=== PATIENT | male | born 1980 | race Caucasian/White ===

== ENCOUNTER → 2019-10-16 | Emergency (ER) | payer MEDICAID ==
[~2019-10-16] MED LIST: ALPR1TAB2 PO; IBUP800T24 PO; LEVAAER4 IN
== END | disposition left against medical advice (07) ==
LOC: ER 21:38
DX: I10 Essential (primary) hypertension (principal); Z53.21 Procedure and treatment not carried out due to patient leaving prior to being seen by health care provider

== ENCOUNTER → 2020-01-11 | Emergency (ER) | payer MEDICAID ==
[~2020-01-11] VITALS: Ht 188 cm; Wt 165.6 kg
[2020-01-11 12:50] LABS: Urine Bacteria NONE SEEN /hpf (None Seen); Urine Blood Negative /uL (Negative); Urine WBC <1 /hpf (0 - 3)
[2020-01-11 13:13] LABS: Basophils # (auto) 0.1 10 ^3/uL (0-0.2); Basophils % (auto) 0.7 % (0.0-2.0); Eosinophils # (auto) 0.2 10 ^3/uL (0-0.8); Hemoglobin 14.2 g/dL (13.5-17.5); Monocytes # (auto) 0.5 10 ^3/uL (0-1.3)
[2020-01-11 13:14] LABS: Eosinophils % (auto) 1.7 % (0.0-7.0); Hematocrit 43.1 % (41.0-53.0); Lymphocytes # (auto) 2.7 10 ^3/uL (0.4-5.4); Lymphocytes % (auto) 28.5 % (10.0-50.0); Mean Corpuscular Hemoglobin 26.7 pg (28.0-32.0); Mean Corpuscular Volume 81.1 fL (80.0-100.0); Monocytes % (auto) 5.3 % (0.0-12.0); Neutrophils # (auto) 6.2 10 ^3/uL (1.6-8.6); Neutrophils % (auto) 63.8 % (37.0-80.0); Platelet Count (auto) 251 10^3/uL (140-450); Red Blood Cells 5.32 10^6/uL (4.5-5.90); Red Cell Distribution Width 16.5 % (11.8-14.3); White Blood Cell 9.6 10^3/uL (4.4-10.8)
[2020-01-11 13:34] LABS: Albumin 3.5 g/dL (3.4-5.0); Calcium 9.1 mg/dL (8.5-10.1)
[2020-01-11 13:38] LABS: BUN/Creatinine Ratio 11.9; Bilirubin, Total 0.4 mg/dL (0.2-1.0)
[2020-01-11 13:40] LABS: Magnesium 2.2 mg/dL (1.6-2.6)
[2020-01-11 15:00] VITALS: BP 150/75
== END | disposition home or self-care (01) ==
LOC: ER 11:50
DX: N20.0 Calculus of kidney (principal); R10.32 Left lower quadrant pain; E66.01 Morbid (severe) obesity due to excess calories; Z68.42 Body mass index [BMI] 45.0-49.9, adult; Z88.1 Allergy status to other antibiotic agents; Z88.6 Allergy status to analgesic agent; Z79.899 Other long term (current) drug therapy; Z87.442 Personal history of urinary calculi; Z93.3 Colostomy status; Z90.49 Acquired absence of other specified parts of digestive tract; Z87.891 Personal history of nicotine dependence
CPT/HCPCS: 36415; 74176; 80053; 81001; 83690; 83735; 85025

== ENCOUNTER 2020-02-18 22:39 | Inpatient (IN) | payer MEDICAID ==
[~2020-02-18] VITALS: Ht 188 cm; Wt 176.9 kg
[2020-02-18 23:10] LABS: Basophils # (auto) 0.1 10 ^3/uL (0-0.2); Basophils % (auto) 0.7 % (0.0-2.0); Eosinophils # (auto) 0.1 10 ^3/uL (0-0.8); Eosinophils % (auto) 0.6 % (0.0-7.0); Hemoglobin 15.3 g/dL (13.5-17.5); Lymphocytes # (auto) 3.5 10 ^3/uL (0.4-5.4); Lymphocytes % (auto) 23.5 % (10.0-50.0); Mean Corpuscular Hgb Conc. 33.2 g/dL (32.0-36.0); Mean Corpuscular Volume 81.3 fL (80.0-100.0); Monocytes # (auto) 0.9 10 ^3/uL (0-1.3); Monocytes % (auto) 6.1 % (0.0-12.0); Neutrophils # (auto) 10.3 10 ^3/uL (1.6-8.6); Neutrophils % (auto) 69.1 % (37.0-80.0); Nucleated Red Blood Cells % 0.3 %; Platelet Count (auto) 262 10^3/uL (140-450); Red Blood Cells 5.65 10^6/uL (4.5-5.90); Red Cell Distribution Width 16.3 % (11.8-14.3); White Blood Cell 14.9 10^3/uL (4.4-10.8)
[2020-02-18 23:15] LABS: Urine Bacteria FEW /hpf (None Seen); Urine Blood TRACE /uL (Negative); Urine Mucus FEW (None Seen); Urine Specific Gravity 1.014 (1.001-1.035); Urine WBC <1 /hpf (0 - 3)
[2020-02-18 23:28] LABS: Albumin 3.7 g/dL (3.4-5.0); BUN/Creatinine Ratio 11.1; Calcium 9.7 mg/dL (8.5-10.1); Potassium 3.7 mmol/L (3.5-5.1)
[2020-02-18 23:31] LABS: Bilirubin, Total 0.6 mg/dL (0.2-1.0); Total Protein 9.2 g/dL (6.4-8.2)
[2020-02-19] MEDS ORDERED: HYDROmorphone HCL 2 MG/ML VL IV ONE (02:30)
[2020-02-19] MEDS ORDERED: ONDANSETRON HCL 4 MG/2 ML VIAL IV ONE (02:30)
[2020-02-19] MEDS ORDERED: PIPERACILLIN-TAZOB 3.375GM 100 ML IV ONE (08:15)
[2020-02-19] MEDS ORDERED: MORPHINE SULF INJ 2 MG/ML SYRINGE 1ML IV PRN (09:45)
[2020-02-19] MEDS ORDERED: cefTRIAXone 1GM/50ML D5W 50 ML IV ONE (09:45)
[2020-02-19] MEDS ORDERED: traMADol HCL 50 MG TAB PO PRN (09:45)
[2020-02-19] MEDS ORDERED: PROMETHAZINE HCL 25 MG/ML 1ML IV PRN (09:45)
[2020-02-19] MEDS ORDERED: TEMAZEPAM 15 MG CAP PO PRN (09:45)
[2020-02-19] MEDS ORDERED: ACETAMINOPHEN 500 MG TAB PO PRN (09:45)
--- NOTE | 2020-02-19 10:00 | NUR ---
MS admit from ER KODY MORILLO admitted to tele/MS after SBAR received. Patient oriented to LORIN HATCH, RN primary RN, unit, room, bed, and unit policies regarding patient care and visiting hours. Patient weighed by bedscale and encouraged to call if they need something. All questions and concerns addressed, patient verbalized understanding. Note:
[2020-02-19 10:30] VITALS: BP 148/80
[2020-02-19 11:43] LABS: Hemoglobin 14.6 g/dL (13.5-17.5)
[2020-02-19 11:45] LABS: Hematocrit 44.9 % (41.0-53.0)
[2020-02-19] MEDS: FAMOTIDINE 20 MG TAB PO SCH ×2 (13:53→21:14)
[2020-02-19 14:09] VITALS: BP 148/80
[2020-02-19] MEDS: metroNIDAZOLE 500MG/100ML 100 ML IV SCH ×2 (14:34→21:14)
[2020-02-19] MEDS: SODIUM CHLORIDE 0.9% 1,000 ML IV SCH ×2 (14:34→20:38)
[2020-02-19 16:54] VITALS: BP 136/72
--- NOTE | 2020-02-19 17:35 | NUR ---
PATIENT C/O OF ANXIETY WILL REQUEST AN ORDER OF ATIVAN FOR ANXIETY.
--- NOTE | 2020-02-19 18:10 | NUR ---
COMMUNICATION CALLED HOSPITAL LIST TO FOR AN ORDER OF ATIVAN FOR ANXIETY. DR. STEINBERG ORDERED ATIVAN 1MG Q12PRN FOR ANXIETY. Addendum: 02/19/20 at 1943 by LORIN HATCH RN RN PATIENT REFUSED MEDICATION PATIENT IS REQUESTING XANAX FOR ANXIETY AND NOT ATIVAN. WILL NOTIFY [facility] LIST OF CHANGE.
[2020-02-19 18:17] LABS: Hemoglobin 14.6 g/dL (13.5-17.5)
[2020-02-19] MEDS ORDERED: LORazepam 0.5 MG TAB PO PRN (18:30)
--- NOTE | 2020-02-19 19:15 | NUR ---
opening note pt A&Ox4. respirations even and non labored on room. pt denies pain or discomfort at this time. colostomy at left abd quadrant. IV fluids NS running at 100ml/hr. bed in low locked position, call light within reach.
--- NOTE | 2020-02-19 19:43 | NUR ---
MEDICATION CHANGE DR. SHIELDS COMMUNICATED TO CHANGE ORDER TO 1MG OF XANAX FOR ANXIETY, ONE TIME ORDER. WILL NOTIFY THE NOC RN.
[2020-02-19] MEDS ORDERED: ALPRAZolam 0.5 MG TAB PO ONE (20:00)
[2020-02-19 21:55] VITALS: BP 147/96
[2020-02-20] VITALS (7 sets, daily range): BP systolic 136–162; BP diastolic 73–89
[2020-02-20 02:02] LABS: Hematocrit 43.9 % (41.0-53.0); Hemoglobin 14.7 g/dL (13.5-17.5)
[2020-02-20] MEDS: metroNIDAZOLE 500MG/100ML 100 ML IV SCH ×2 (05:14→13:05)
[2020-02-20] MEDS: SODIUM CHLORIDE 0.9% 1,000 ML IV SCH ×2 (06:42→15:44)
--- NOTE | 2020-02-20 07:08 | NUR ---
CLOSING NOTE pt resting in left lateral position with eyes closed. no s/s of pain or discomfort. respirations are even and non labored on room air. bed in in low locked position, call light within reach.
--- NOTE | 2020-02-20 07:24 | NUR ---
Opening Shift Note Assumed care of patient, awake and alert. No S/S of distress/SOB or pain. Instructed on POC and to call for assist PRN, will continue to monitor for changes Q1hr and PRN. Noted colostomy bag to the left lower quadrant in place. Bed is set in lowest locked position with side rails up x 2 for safety and call light is within reach.
[2020-02-20 07:57] LABS: Basophils # (auto) 0 10 ^3/uL (0-0.2); Basophils % (auto) 0.4 % (0.0-2.0); Eosinophils # (auto) 0.1 10 ^3/uL (0-0.8); Eosinophils % (auto) 1.4 % (0.0-7.0); Hematocrit 42.5 % (41.0-53.0); Hemoglobin 14.2 g/dL (13.5-17.5); Lymphocytes # (auto) 2.6 10 ^3/uL (0.4-5.4); Lymphocytes % (auto) 26.6 % (10.0-50.0); Mean Corpuscular Hemoglobin 27.4 pg (28.0-32.0); Mean Corpuscular Hgb Conc. 33.5 g/dL (32.0-36.0); Mean Corpuscular Volume 81.7 fL (80.0-100.0); Monocytes # (auto) 0.7 10 ^3/uL (0-1.3); Monocytes % (auto) 7.6 % (0.0-12.0); Neutrophils # (auto) 6.3 10 ^3/uL (1.6-8.6); Nucleated Red Blood Cells % 0.1 %; Platelet Count (auto) 206 10^3/uL (140-450); Red Cell Distribution Width 16.2 % (11.8-14.3); White Blood Cell 9.8 10^3/uL (4.4-10.8)
[2020-02-20] MEDS ORDERED: cefTRIAXone 1GM/50ML D5W 50 ML IV SCH (09:00)
[2020-02-20] MEDS: FAMOTIDINE 20 MG TAB PO SCH (09:04)
--- NOTE | 2020-02-20 13:53 | NUR ---
MD rounding at bedside Dr. Mayes updated pt on POC and plans for discharge, patient verbalized understanding. MD aware of patient BP 162/89, no new orders received at this time. Will continue to monitor patient.
[2020-02-20] MEDS ORDERED: CIPR500T4 PO (16:10)
[2020-02-20] MEDS ORDERED: METR500T PO (16:10)
[2020-02-20] MEDS ORDERED: ONDA-144 PO (16:10)
--- NOTE | 2020-02-20 17:00 | NUR ---
Picked up patient medications from pharmacy Medications given to patient. Patient denies allergy to ciprofloxacin, states he is only allergic to levofloxacin. aware.
--- NOTE | 2020-02-20 17:01 | NUR ---
Stool sample MD aware of no collection of stool sample, due to no production of stool in patient's colostomy bag, patient denies having a bowel movement.
--- NOTE | 2020-02-20 17:41 | NUR ---
Discharge instructions given as ordered. Encourage to follow up with PMD as instructed, patient provided with PCP information and instructed to follow up with GI doctor within one week of discharge. All questions and concerns addressed. Patient verbalized understanding. Home medications held in Pharmacy returned to patient. IV removed with catheter intact, pressure dressing applied. Patient taken to vehicle via wheelchair with all personal belongings, accompanied by staff. No distress noted at time of departure.
== END 2020-02-20 17:40 | disposition home or self-care (01) | DRG 720 ==
LOC: ER 22:40 → OVERFLOW 22:41 → WEST WING 02-19 10:37
PROVIDERS: ADMIT Internal Medicine; ATTEND Internal Medicine
DX: A41.9 Sepsis, unspecified organism (principal); K57.31 Diverticulosis of large intestine without perforation or abscess with bleeding; E66.01 Morbid (severe) obesity due to excess calories; K52.9 Noninfective gastroenteritis and colitis, unspecified; K43.5 Parastomal hernia without obstruction or gangrene; Z93.3 Colostomy status; Z82.49 Family history of ischemic heart disease and other diseases of the circulatory system; Z88.1 Allergy status to other antibiotic agents; Z87.442 Personal history of urinary calculi; Z90.49 Acquired absence of other specified parts of digestive tract; Z68.43 Body mass index [BMI] 50.0-59.9, adult
CPT/HCPCS: 36415; 74176; 80053; 81001; 82150; 83605; 83690; 85014; 85018; 85025; 85045; 87040; 96365; 96375; G0378; J0696; J2405; J2543; J3490

== ENCOUNTER → 2020-06-25 | Emergency (ER) | payer MEDICAID ==
[~2020-06-25] VITALS: Ht 188 cm; Wt 166.5 kg
[~2020-06-25] MED LIST changes: +CIPR500T4 PO; +KETOROLAC TROMETH 30 MG/ML 1ML VIAL IV ONE; +METR500T PO; +ONDA-144 PO; +SODIUM CHLORIDE 0.9% 1,000 ML IV ONE; +TAMSULOSIN HYDROCHLORIDE 0.4 MG CAP PO ONE
[2020-06-25 13:00] VITALS: BP 153/72
[2020-06-25 13:23] LABS: Basophils # (auto) 0.1 10 ^3/uL (0-0.2); Basophils % (auto) 0.7 % (0.0-2.0); Eosinophils # (auto) 0.1 10 ^3/uL (0-0.8); Eosinophils % (auto) 1.3 % (0.0-7.0); Hematocrit 46.6 % (41.0-53.0); Hemoglobin 15.4 g/dL (13.5-17.5); Lymphocytes # (auto) 2.5 10 ^3/uL (0.4-5.4); Lymphocytes % (auto) 24.1 % (10.0-50.0); Mean Corpuscular Hemoglobin 27.4 pg (28.0-32.0); Monocytes # (auto) 0.6 10 ^3/uL (0-1.3); Monocytes % (auto) 5.7 % (0.0-12.0); Neutrophils # (auto) 6.9 10 ^3/uL (1.6-8.6); Neutrophils % (auto) 68.2 % (37.0-80.0); Nucleated Red Blood Cells % 0.2 %; Platelet Count (auto) 228 10^3/uL (140-450); Red Blood Cells 5.62 10^6/uL (4.5-5.90); Red Cell Distribution Width 15.7 % (11.8-14.3); White Blood Cell 10.2 10^3/uL (4.4-10.8)
[2020-06-25 13:41] LABS: Albumin 3.8 g/dL (3.4-5.0); Anion Gap 2 (5-15); Blood Urea Nitrogen 11 mg/dL (7-18); Calcium 9.5 mg/dL (8.5-10.1); Carbon Dioxide 30 mmol/L (21-32); Chloride 105 mmol/L (98-107); Glucose 100 mg/dL (74-106); Sodium 137 mmol/L (136-145)
[2020-06-25 13:51] LABS: Alanine Aminotransferase 31 U/L (16-61); Alkaline Phosphatase 84 U/L (45-117); Aspartate Aminotransferase 18 U/L (15-37); BUN/Creatinine Ratio 10.3; Bilirubin, Total 0.5 mg/dL (0.2-1.0); GFR African American 99 mL/min; GFR Non-African American 82 mL/min; Total Protein 9.1 g/dL (6.4-8.2)
== END | disposition home or self-care (01) ==
LOC: ER 12:35
DX: I24.9 Acute ischemic heart disease, unspecified (principal); R10.9 Unspecified abdominal pain; Z88.1 Allergy status to other antibiotic agents; Z88.8 Allergy status to other drugs, medicaments and biological substances
CPT/HCPCS: 36415; 71045; 74176; 80053; 84484; 85025; 93005; 96361; 96374; 99285; J1885; J7030

== ENCOUNTER 2021-03-09 16:56 | Emergency (ER) | payer MEDICAID ==
[~2021-03-09] VITALS: Ht 188 cm; Wt 164.2 kg
[~2021-03-09 16:56] MED LIST changes: -IBUP800T24 PO; +IBUP800T27 PO; -KETOROLAC TROMETH 30 MG/ML 1ML VIAL IV ONE; -SODIUM CHLORIDE 0.9% 1,000 ML IV ONE; -TAMSULOSIN HYDROCHLORIDE 0.4 MG CAP PO ONE
[2021-03-09 17:26] LABS: Urine WBC None Seen /hpf (0 - 3)
[2021-03-09] MEDS ORDERED: MORPHINE SULFATE 4 MG/ML SYR/VIAL IV ONE (17:30)
[2021-03-09] MEDS ORDERED: SODIUM CHLORIDE 0.9% 500 ML IVB ONE (17:30)
[2021-03-09] MEDS ORDERED: ONDANSETRON HCL 4 MG/2 ML VIAL IV ONE (17:30)
[2021-03-09 17:35] LABS: Urine Bacteria NONE SEEN /hpf (None Seen); Urine Blood Negative /uL (Negative); Urine Specific Gravity 1.018 (1.001-1.035)
[2021-03-09 18:02] LABS: Basophils # (auto) 0 10 ^3/uL (0-0.2); Basophils % (auto) 0.4 % (0.0-2.0); Eosinophils # (auto) 0.2 10 ^3/uL (0-0.8); Eosinophils % (auto) 1.7 % (0.0-7.0); Hematocrit 43.1 % (41.0-53.0); Hemoglobin 14.8 g/dL (13.5-17.5); Lymphocytes # (auto) 3.6 10 ^3/uL (0.4-5.4); Mean Corpuscular Hemoglobin 28.2 pg (28.0-32.0); Mean Corpuscular Hgb Conc. 34.2 g/dL (32.0-36.0); Mean Corpuscular Volume 82.3 fL (80.0-100.0); Monocytes # (auto) 0.8 10 ^3/uL (0-1.3); Monocytes % (auto) 6.7 % (0.0-12.0); Neutrophils # (auto) 7.1 10 ^3/uL (1.6-8.6); Neutrophils % (auto) 60.2 % (37.0-80.0); Nucleated Red Blood Cells % 0.1 %; Platelet Count (auto) 224 10^3/uL (140-450); Red Blood Cells 5.24 10^6/uL (4.5-5.90); Red Cell Distribution Width 15.8 % (11.8-14.3); White Blood Cell 11.7 10^3/uL (4.4-10.8)
[2021-03-09 18:14] VITALS: BP 141/76
[2021-03-09 18:17] LABS: Alanine Aminotransferase 39 U/L (16-61); Albumin 3.4 g/dL (3.4-5.0); Anion Gap 5 (5-15); Aspartate Aminotransferase 42 U/L (15-37); Blood Urea Nitrogen 16 mg/dL (7-18); Calcium 9.3 mg/dL (8.5-10.1); Carbon Dioxide 28 mmol/L (21-32); Chloride 104 mmol/L (98-107); GFR African American 114 mL/min; GFR Non-African American 94 mL/min; Glucose 96 mg/dL (74-106); Lipase 102 U/L (73-393); Potassium 4.4 mmol/L (3.5-5.1); Sodium 137 mmol/L (136-145)
[2021-03-09 18:24] LABS: Alkaline Phosphatase 80 U/L (45-117); Bilirubin, Total 0.4 mg/dL (0.2-1.0); Total Protein 8.8 g/dL (6.4-8.2)
== END 2021-03-09 19:05 | disposition home or self-care (01) ==
LOC: ER 16:56
DX: R10.9 Unspecified abdominal pain (principal); R07.89 Other chest pain; D72.829 Elevated white blood cell count, unspecified; I10 Essential (primary) hypertension; Z87.442 Personal history of urinary calculi; Z87.891 Personal history of nicotine dependence; Z88.1 Allergy status to other antibiotic agents
CPT/HCPCS: 36415; 74176; 80053; 81001; 83690; 84484; 85025; 93005; 96374; 96375; 99285; J2270; J2405; J7040

== ENCOUNTER 2021-09-23 01:58 | Inpatient (IN) | payer MEDICAID ==
[~2021-09-23] VITALS: Ht 188 cm; Wt 165.9 kg
[2021-09-23] MEDS ORDERED: KETOROLAC TROMETH 30 MG/ML 1ML VIAL IV ONE ×4 (02:15→09:00)
[2021-09-23] MEDS ORDERED: MORPHINE SULFATE 4 MG/ML SYR/VIAL IV ONE ×2 (02:15→04:15)
[2021-09-23] MEDS ORDERED: SODIUM CHLORIDE 0.9% 1,000 ML IV ONE (02:15)
[2021-09-23] MEDS ORDERED: ONDANSETRON HCL 4 MG/2 ML VIAL ONE (03:01)
[2021-09-23 03:29] LABS: Basophils # (auto) 0.1 10 ^3/uL (0-0.2); Basophils % (auto) 0.8 % (0.0-2.0); Eosinophils # (auto) 0.3 10 ^3/uL (0-0.8); Eosinophils % (auto) 3.2 % (0.0-7.0); Hematocrit 41.8 % (41.0-53.0); Hemoglobin 13.6 g/dL (13.5-17.5); Lymphocytes # (auto) 3.5 10 ^3/uL (0.4-5.4); Lymphocytes % (auto) 35.6 % (10.0-50.0); Mean Corpuscular Hemoglobin 27.2 pg (28.0-32.0); Mean Corpuscular Hgb Conc. 32.6 g/dL (32.0-36.0); Mean Corpuscular Volume 83.4 fL (80.0-100.0); Monocytes # (auto) 0.8 10 ^3/uL (0-1.3); Neutrophils # (auto) 5.2 10 ^3/uL (1.6-8.6); Neutrophils % (auto) 52.4 % (37.0-80.0); Nucleated Red Blood Cells % 0.2 %; Red Blood Cells 5.01 10^6/uL (4.5-5.90); Red Cell Distribution Width 18.2 % (11.8-14.3); White Blood Cell 9.9 10^3/uL (4.4-10.8)
[2021-09-23 03:48] LABS: Potassium 5.2 mmol/L (3.5-5.1)
[2021-09-23 03:54] LABS: BUN/Creatinine Ratio 11.3; Bilirubin, Total 0.4 mg/dL (0.2-1.0); Total Protein 8.2 g/dL (6.4-8.2)
[2021-09-23 04:07] LABS: Urine Bacteria NONE SEEN /hpf (None Seen); Urine Blood Negative /uL (Negative); Urine WBC 1 /hpf (0 - 3)
[2021-09-23] MEDS ORDERED: PROMETHAZINE HCL 25 MG/ML 1ML IV ONE (07:45)
[2021-09-23] MEDS ORDERED: TEMAZEPAM 15 MG CAP PO PRN (09:00)
[2021-09-23] MEDS ORDERED: ACETAMINOPHEN 325 MG TAB PO PRN (09:00)
[2021-09-23] MEDS ORDERED: HYDROcodone-ACET 5/325MG TAB PO PRN (09:00)
[2021-09-23] MEDS ORDERED: FUROSEMIDE 40 MG/4 ML VIAL IV ONE (09:00)
[2021-09-23] MEDS ORDERED: TAMSULOSIN HYDROCHLORIDE 0.4 MG CAP PO ONE (09:00)
[2021-09-23] MEDS ORDERED: CEFTRIAXONE SODIUM 2 GM in D5W 5% 50 ML IV ONE (09:15)
[2021-09-23] MEDS: SODIUM CHLORIDE 0.9% 1,000 ML IV SCH (09:44)
[2021-09-23] MEDS: HYDROmorphone HCL 2 MG/ML VL IV PRN ×2 (09:45→19:53)
[2021-09-23 13:25] LABS: Amylase 83 U/L (25-115); Lipase 76 U/L (73-393)
[2021-09-23 17:21] VITALS: BP 151/90
[2021-09-23] MEDS: ONDANSETRON HCL 4 MG/2 ML VIAL IV PRN (19:34)
[2021-09-23 20:00] VITALS: BP 152/78
[2021-09-23 21:56] VITALS: BP 152/78
[2021-09-24] MEDS: HYDROmorphone HCL 2 MG/ML VL IV PRN (04:00)
[2021-09-24] MEDS: ONDANSETRON HCL 4 MG/2 ML VIAL IV PRN (04:00)
[2021-09-24] MEDS: SODIUM CHLORIDE 0.9% 1,000 ML IV SCH (04:29)
[2021-09-24 05:00] VITALS: BP 151/82
[2021-09-24 09:00] VITALS: BP 135/73
[2021-09-24] MEDS ORDERED: FUROSEMIDE 20 MG/2 ML VIAL IV ONE (11:30)
[2021-09-24 12:26] VITALS: BP 128/89
[2021-09-24 13:00] VITALS: BP 143/76
[2021-09-24 14:40] LABS: BUN/Creatinine Ratio 11.8; Potassium 4.5 mmol/L (3.5-5.1)
[2021-09-24 17:00] VITALS: BP 140/75
== END 2021-09-24 17:40 | disposition home or self-care (01) | DRG 465 ==
LOC: ER 01:58 → OVERFLOW 08:58 → WEST WING 15:46
PROVIDERS: ADMIT Internal Medicine; ATTEND Internal Medicine
DX: N13.8 Other obstructive and reflux uropathy (principal); N17.8 Other acute kidney failure; Z20.822 Contact with and (suspected) exposure to COVID-19; N20.0 Calculus of kidney; I10 Essential (primary) hypertension; E66.01 Morbid (severe) obesity due to excess calories; Z68.42 Body mass index [BMI] 45.0-49.9, adult; Z82.49 Family history of ischemic heart disease and other diseases of the circulatory system; Z87.891 Personal history of nicotine dependence; Z88.8 Allergy status to other drugs, medicaments and biological substances; Z83.6 Family history of other diseases of the respiratory system; Z86.16 Personal history of COVID-19
CPT/HCPCS: 36415; 74176; 80048; 80053; 81001; 82150; 83036; 83690; 84484; 85025; 87426; 96374; 96375; 96376; G0378; J0696; J1885; J2405; J7060